=== PATIENT | female | born 1950 | race Caucasian/White ===

== ENCOUNTER 2019-03-30 06:08 | Observation (INO) | payer OTHER ==
[2019-03-30] VITALS (13 sets, daily range): BP systolic 147–167; BP diastolic 54–75
[~2019-03-30] VITALS: Ht 160 cm; Wt 74.8 kg
--- NOTE | ~2019-03-30 | P ---
[facility] [place] [address] PROCEDURE REPORT Name: CARLEENLLOYD Theodore Room #: 212-P [facility] Patrick Fontana#: [id number] Admission: 03/30/19 Attend Phys: Shawn Serrano MD Discharge: 03/31/19 Date of : 46 Report #: [id number] THIS REPORT FOR: //name// CC: Shawn Johnson PREOPERATIVE DIAGNOSIS: Atrial fibrillation. POSTOPERATIVE DIAGNOSIS: Atrial fibrillation. PROCEDURES PERFORMED: 1. Atrial fibrillation ablation, CPT code 48207. 2. 3D mapping, CPT code 98391. 3. Intracardiac echo, CPT code 51025. 4. Pre-procedure pacemaker reprogramming, CPT code 40282. 5. Post-procedure pacemaker reprogramming CPT code 16633. ANESTHESIA: The patient underwent general anesthesia with no anesthesia-related complications. DESCRIPTION OF PROCEDURE: The patient underwent informed consent. We discussed the details of the procedure including the risks, which include but not limited to bleeding, infection, vascular damage, cardiac perforation, pneumothorax, as well as stroke, and OR. She understood these risks and is willing to proceed. The patient was brought to the EP laboratory in a fasting and sedated state, prepped and draped in a sterile fashion. Her Biotronik pacemaker was reprogrammed prior to the ablation. I then obtained access to the right femoral vein x 3. I injected lidocaine to the right groin and I then placed an 8, 9, and 7-Icelandic short sheath using the modified Seldinger technique. Next, under fluoroscopy, decapolar catheter was placed in the coronary sinus. ICE catheter was placed in the right atrium and using intracardiac ultrasound in 3D geometry of the left atrium was created with specific emphasis of the two left and two right pulmonary veins. This was merged with the cardiac CT scan. Next, the patient was systemically heparinized and a transseptal was performed. I exchanged for the cryo sheath and placed the Lasso catheter and created a detailed 3D voltage map of the left atrium. Next, the left superior pulmonary vein was isolated. I performed two 4-minute freezes and during the second freeze, the vein isolated within 98 seconds. I then turned my attention to the left inferior pulmonary vein, the vein isolated during the first freeze, which was of 4 minutes' duration. The vein isolated within 70 seconds. The temps during this freeze were very good staying at -31 degrees. A second freeze was attempted, but the attempts were not very good, so I came off and then I performed a third freeze of 4 minutes' duration with attempts at around -33 degrees. I then turned my attention to the right superior pulmonary vein. I performed a 4-minute followed by a 3-minute freeze, this vein isolated during the first freeze within 180 seconds. I then proceeded with isolating the right [facility] [address] [place] [address] PROCEDURE REPORT Name: LLOYD DURANT Room #: 212-P [facility]EENA Fontana#: [id number] Admission: 03/30/19 Attend Phys: Shawn Serrano MD Discharge: 03/31/19 Date of : 46 Report #: [id number] inferior pulmonary vein. This vein underwent a single 4-minute freeze as the vein isolated within 40 seconds. While isolating the right-sided veins, phrenic nerve pacing was performed via the decapolar catheter placed in the subclavian position. Next, a repeat voltage map was created and this showed that we had clearly performed a wide circumferential ablation of the pulmonary veins. The patient remained in sinus rhythm throughout the procedure. Post-ablation, her pacemaker was reprogrammed to its nominal settings. Leads were found to be functioning normally. The patient received systemic protamine and once ACT was within acceptable range, catheters and sheaths were pulled. Hemostasis was obtained. The patient awoke neurologically and hemodynamically intact. No complications and no significant bleeding. CONCLUSIONS: Successful AFib ablation with isolation of the 4 pulmonary veins. By: [id number] Shawn Serrano MD /nt
--- NOTE | ~2019-03-30 | D ---
[facility] [place] [address] DISCHARGE SUMMARY Name: LLOYD DURANT Theodore Room #: 212-P [facility] Patrick Fontana#: [id number] Admission: 03/30/19 Attend Phys: Shawn Serrano MD Discharge: 03/31/19 Date of : 46 Report #: [id number] THIS REPORT FOR: //name// CC: Shawn Johnson DATE OF SERVICE: 03/30/2019 DIAGNOSES: 1. Paroxysmal atrial fibrillation. 2. Sick sinus syndrome. HISTORY: The patient is a 68-year-old with history of paroxysmal atrial fibrillation as well as sick sinus syndrome, status post recent implantation of a Biotronik dual-chamber pacemaker implantation for sinus arrest. She is here for AFib ablation. The patient underwent successful AFib ablation with isolation of the pulmonary veins. There were no procedure-related complications. HOSPITAL COURSE: She was monitored in the CCU overnight. She did well and had no issues. She denied any chest pain, shortness of breath, fevers, or chills. PHYSICAL EXAMINATION HEART: Regular rate and rhythm. LUNGS: Clear to auscultation bilaterally. ABDOMEN: Soft, nontender. GENITOURINARY: Her groin showed no significant bruising or hematoma. On telemetry, she remained in sinus rhythm overnight. As such, she was deemed stable for discharge home on her standard home medications, which include sotalol 160 b.i.d. as well as anticoagulation. Discharge instructions were reviewed. She will follow up with my nurse practitioner in 7-10 days, and see me in 3 months. By: [id number] Shawn Serrano MD /nt
[~2019-03-30 06:08] MED LIST: ADVAIR 250-501 EACH IH; ASPIRIN EC81 M1 PO; CRESTOR10 MG PO; DESYREL100 MG PO; FLEXERIL PO; IMDUR; LISINOPRIL40 MG PO; TRIAMTERENE-HC1 EAC1 PO; XANAX 0.5 MG0.5 M1 PO
[2019-03-30 07:18] LABS: BASOPHILS 0.9 % (0.0-2.0); EOSINOPHILS 3.4 % (0.0-3.0); HEMATOCRIT 38.4 % (37.0-47.0); HEMOGLOBIN 12.5 gm/dL (12.0-15.0); LYMPHOCYTES 12.1 % (24.0-44.0); MCH 28.2 pg (26.0-34.0); MCHC 32.6 g/dL (28.0-37.0); MCV 86.4 fL (80.0-100.0); MONOCYTES 8.5 % (1.0-8.0); PLATELET COUNT 338 thou/uL (150-400); POLYS 75.1 % (36.0-66.0); RBC 4.44 mil/uL (4.20-5.00); RDW 13.7 % (10.5-14.5); WBC 11.9 thou/uL (4.0-11.0)
[2019-03-30] MEDS ORDERED: VENTOLIN HFA 1818 GM INH (07:22)
[2019-03-30] MEDS ORDERED: ANORO ELLIPTA1 EACH INH (07:24)
[2019-03-30] MEDS ORDERED: CETIRIZINE HCL5 MG PO (07:25)
[2019-03-30] MEDS ORDERED: CATAPRES0.1 MG PO (07:26)
[2019-03-30] MEDS ORDERED: ELIQUIS5 MG PO (07:27)
[2019-03-30] MEDS ORDERED: DIGOXIN125 MCG PO (07:27)
[2019-03-30 07:28] LABS: CALCIUM 11.3 mg/dL (8.5-10.1); CREATININE 1.4 mg/dL (0.6-1.0); POTASSIUM 3.8 mmol/L (3.5-5.1)
[2019-03-30] MEDS ORDERED: IMDUR 30 MG TAB30 M1 PO (07:28)
[2019-03-30] MEDS ORDERED: LIVALO4 MG PO (07:29)
[2019-03-30 07:30] LABS: APTT 27.5 Seconds (24.5-32.8); PROTIME 10.1 Seconds (9.3-11.4)
[2019-03-30] MEDS ORDERED: METFORMIN HCL500 MG PO (07:30)
[2019-03-30] MEDS ORDERED: SORINE 80 MG TA80 M1 PO (07:31)
[2019-03-30] MEDS ORDERED: SERTRALINE HCL50 MG PO (07:31)
[2019-03-30] MEDS ORDERED: TRAMADOL 50 MG50 MG PO (07:32)
[2019-03-30 07:34] LABS: ALBUMIN 3.9 g/dL (3.4-5.0); TOTAL BILIRUBIN 0.3 mg/dL (<0.1-1.0)
--- NOTE | 2019-03-30 13:17 | NUR ---
TO UNIT BY BED AT 1200, REPORT FROM OCTOBER, RN. NO COMPLAINTS. AAOX4. ADULT DTR AT BEDSIDE. ORIENTED TO UNIT AND POST PROCEDURE EVENTS. VS AND GROIN CHECKS ORDERED. NSR PER TELE. WILL CONTINUE TO FOLLOW CLOSELY.
[2019-03-31] VITALS: BP 137/55
[2019-03-31 00:30] VITALS: BP 137/55
--- NOTE | 2019-03-31 04:42 | NUR ---
RECEIVED PT'S CARE AT 1915; PT. ON BED; AOX4; NO HEMATOMA DURING SHIFT CHANGE; DURING ASSESSMENT NO C/O PAIN; NO HEMATOMA OVER R. GROIN AREA; PULSES 2/1; EDUCATED ABOUT CALLING IF FEELING WEAK OR DIZZIE; EDUCATED ABOUT CALLING IF FEELING PAIN OVER R. GROIN AREA OR PRESSURE; [facility]; EDUCATED ABOUT HOLDING PRESSURE OVER R. GROIN SIDE WHEN COUGHING; [facility]STAND[facility]; REQUESTED PRN ANTY-ANXIETY MEDICATION; MEDICATION GIVEN; ABLE TO REST FOR A FEW HOURS UNTIL 0200; NO HEMATOMA OVER R. GROIN AREA DURING ASSESSMENT; MONITORING; ASSESSMENT CHARGED; FOLLOWING POC; WILL PASS ON REPORT.
[2019-03-31 04:45] VITALS: BP 145/55
[2019-03-31 07:32] VITALS: BP 155/60
[2019-03-31 08:57] VITALS: BP 155/60
[2019-03-31 09:13] VITALS: BP 155/60
--- NOTE | 2019-03-31 10:55 | NUR ---
BEING DISCHARGED TO HOME. SALINE LOCK, TELE REMOVED, DISCHARGE INSTRUCTIONS GIVEN. FROM UNIT WITH ADULT DTR AND VOLUNTEER BY WC.
== END 2019-03-31 10:39 | disposition home or self-care (01) ==
LOC: CATH 06:08 → 2N 12:18 → CATH 14:52 → ENTRNSPT 03-31 10:09 → EDTRNSPTSTS 03-31 10:25 → 2N 03-31 10:39
PROVIDERS: ADMIT Internal Medicine Cardiovascular Disease
DX: I48.0 Paroxysmal atrial fibrillation (principal); I49.5 Sick sinus syndrome; Z79.899 Other long term (current) drug therapy
CPT/HCPCS: 62110; 62900; 65020; 65040; 70005